=== PATIENT | female | born 1995 | race Hispanic/Latino ===

== ENCOUNTER 2017-04-08 23:49 | Emergency (ER) | payer OTHER, SELFPAY ==
[2017-04-09] MEDS ORDERED: Acetaminophen 325 MG TAB ONE (00:23)
[2017-04-09] MEDS ORDERED: HYDROcodone/Acetaminophen 10/325 mg Tablet ONE (00:23)
--- NOTE | 2017-04-09 10:29 | RAD ---
RIGHT WRIST THREE VIEWS HISTORY: Wrist injury. FINDINGS: There is deformity at the base of the fifth metacarpal and some lucency in the hamate in this region . I am not certain whether this is related to an old or new injury in this region. It is fairly rodríguez btle. The findings were discussed with Dr. Reyes. IMPRESSION: Deformity, which is related to old versus new trauma at the base of the fifth metacarpal and adjacen t hamate. Findings discussed with Dr. Reyes at the time of this dictation. CODE CR POS: BLAKE
== END 2017-04-09 00:35 | disposition home or self-care (01) ==
LOC: MADERS 23:49
DX: S60.221A Contusion of right hand, initial encounter (principal); W22.01XA Walked into wall, initial encounter